=== PATIENT | male | born 1965 | race African-American/Black ===

== ENCOUNTER 2023-11-11 04:57 | Day surgery (SDC) | payer OTHER ==
[2023-11-07 17:24] VITALS: BMI 41.3
[2023-11-11] MEDS ORDERED: MIDAZOLAM HCL 2 MG/2 ML SINGLE DOSE VIAL ONE (13:58)
[2023-11-11] MEDS ORDERED: ceFAZolin SODIUM 1 GM VIAL ONE (14:03)
[2023-11-11] MEDS: ceFAZolin SODIUM 1 GM VIAL IVPB ONE (14:05)
[2023-11-11] MEDS: BUPIVACAINE HCL/PF 0.25% (2.5MG/ML) 10 ML VIAL IJ ONE (14:14)
[2023-11-11] MEDS: IOHEXOL 180 MG/1 ML ML IJ ONE (14:14)
[2023-11-11] MEDS: LIDOCAINE HCL 1% PRESERVATIVE FREE - 30ML VIAL IJ ONE (14:14)
[2023-11-11] MEDS: DEXAMETHASONE SOD PHOSPHATE 10 MG/1 ML VIAL IVPUSH ONE (14:14)
[2023-11-11 14:35] VITALS: BP 120/71; PULSE 89; RESP 22; TEMP 98
== END 2023-11-11 15:15 | disposition home or self-care (01) ==
LOC: JASU-SURG 04:57
PROVIDERS: ATTEND Physical Medicine & Rehabilitation
PROC: 3E0R3BZ Introduction of Anesthetic Agent into Spinal Canal, Percutaneous Approach (ICD-10-PCS; 2023-11-11)
PROC: 3E0R33Z Introduction of Anti-inflammatory into Spinal Canal, Percutaneous Approach (ICD-10-PCS; principal; 2023-11-11 13:00)
DX: M54.16 Radiculopathy, lumbar region (principal); M54.50 Low back pain, unspecified
CPT/HCPCS: 36415; 76000-TC-FY; 82010; 82962; J1100